=== PATIENT | female | born 1960 | race Caucasian/White ===

== ENCOUNTER 2021-12-25 07:41 | Day surgery (SDC) | payer OTHER ==
[~2021-12-25] VITALS: Ht 157.5 cm; Wt 50.8 kg
[2021-12-25] MEDS ORDERED: NS IRRIG SOLN 1000 ML IR ONE (12:00)
[2021-12-25] MEDS ORDERED: NS 100 ML BAG ONE (12:00)
[2021-12-25] MEDS ORDERED: ARTICAINE HCL/EPINEPHRINE 4%/1:200,000 BIT 1.7 ML CARTRIDGE IJ ONE (12:00)
[2021-12-25] MEDS ORDERED: BENZOCAINE 20% GEL 32 GM BOTTLE MM ONE (12:00)
[2021-12-25 13:20] VITALS: BP_SYST 110
== END 2021-12-25 12:51 | disposition home or self-care (01) ==
LOC: SDS 07:41 → SMU 07:44 → SDS 12:51
PROVIDERS: ATTEND Dentist General Practice
DX: M27.2 Inflammatory conditions of jaws (principal); E11.22 Type 2 diabetes mellitus with diabetic chronic kidney disease; N18.6 End stage renal disease; M89.8X0 Other specified disorders of bone, multiple sites; M26.603 Bilateral temporomandibular joint disorder, unspecified; J01.00 Acute maxillary sinusitis, unspecified; K05.223 Aggressive periodontitis, generalized, severe; M81.0 Age-related osteoporosis without current pathological fracture; Z88.0 Allergy status to penicillin; Z88.2 Allergy status to sulfonamides; Z90.710 Acquired absence of both cervix and uterus; K05.6 Periodontal disease, unspecified; I25.2 Old myocardial infarction; Z79.899 Other long term (current) drug therapy; Z20.822 Contact with and (suspected) exposure to COVID-19
CPT/HCPCS: 21025; 21215; 21248; 36415; 70140; 87426; C1776